=== PATIENT | female | born 1985 | race Caucasian/White ===

== ENCOUNTER 2021-12-27 02:42 | Emergency (ER) | payer OTHER ==
[~2021-12-27] VITALS: Ht 154.9 cm; Wt 70.3 kg
--- NOTE | 2021-12-27 02:48 | NUR ---
TO ER BED 11. BIBSELF C/O HEADACHE AND DIZZY SINCE YESTERDAY. PT STATES "FEELS LIKE ROOM IS SPINNING". WORSE WHEN LYING DOWN OR WHEN CLOSING EYES. PT DENIES ANY CHEST PAIN OR SOB. CONNECTED TO MONITOR. AWAITNG MD HILL
[2021-12-27] MEDS ORDERED: MECLIZINE HCL 25 MG TABLET ONE (02:52)
--- NOTE | 2021-12-27 02:56 | NUR ---
URINE SAMPLE COLLECTED AND SENT TO LAB
[2021-12-27] MEDS ORDERED: MECLIZINE HCL 25 MG TABLET PO ONE (03:00)
[2021-12-27] MEDS ORDERED: MECL-159 PO (03:43)
--- NOTE | 2021-12-27 03:56 | NUR ---
Patient discharged to home in stable condition. Written and verbal after care instructions given. Patient verbalizes understanding of instruction.
[2021-12-27 03:57] VITALS: BP 106/66
== END 2021-12-27 04:08 | disposition home or self-care (01) ==
LOC: ER 02:47
DX: H81.392 Other peripheral vertigo, left ear (principal)
CPT/HCPCS: 84703; 99283; J8597